=== PATIENT | female | born 1985 | race Two or more races ===

== ENCOUNTER 2017-04-08 19:58 | Emergency (ER) | payer MEDICAID ==
[~2017-04-08] VITALS: Ht 157.5 cm; Wt 72.6 kg
[2017-04-08 21:19] LABS: Urine Bilirubin Negative (Negative); Urine Blood Negative /uL (Negative); Urine Color Yellow (Yellow); Urine Glucose Normal (Normal); Urine Ketone Negative (Negative); Urine Mucus FEW (None Seen); Urine Nitrite Negative (Negative); Urine RBC <1 /hpf (0 - 4); Urine Squamous Epithelial Cell FEW /hpf (<5); Urine Urobilinogen Normal (Negative)
[2017-04-08 21:58] VITALS: BP 140/96
[2017-04-08] MEDS ORDERED: KETOROLAC TROMETH 60MG/2ML VIAL IM ONE (22:15)
== END 2017-04-08 22:28 | disposition home or self-care (01) ==
LOC: ER 19:58
DX: S33.5XXA Sprain of ligaments of lumbar spine, initial encounter (principal); Y32.XXXD Crashing of motor vehicle, undetermined intent, subsequent encounter
CPT/HCPCS: 81001; 81025; 96372; 99284; J1885

== ENCOUNTER 2017-05-26 01:56 | Emergency (ER) | payer MEDICAID ==
[~2017-05-26] VITALS: Ht 157.5 cm; Wt 74.8 kg
[2017-05-26 02:09] VITALS: BP 126/84
[2017-05-26 02:32] LABS: Basophils # (auto) 0.1 uL; Basophils % (auto) 0.5 % (0.0-2.0); Eosinophils # (auto) 0 uL; Hematocrit 40.8 % (36.0-46.0); Hemoglobin 14.2 g/dL (12.2-16.2); Lymphocytes # (auto) 1.1 uL; Lymphocytes % (auto) 6.5 % (10.0-50.0); Mean Corpuscular Hemoglobin 28.5 pg (28.0-32.0); Mean Corpuscular Hgb Conc. 34.8 g/dL (32.0-36.0); Monocytes # (auto) 0.5 uL; Neutrophils # (auto) 15.4 uL; Platelet Count (auto) 350 10^3/uL (140-450); Red Blood Cells 4.98 10^6/uL (4.0-5.20); White Blood Cell 17.2 10^3/uL (4.4-10.8)
[2017-05-26 02:50] LABS: Albumin 4.3 g/dL (3.4-5.0); BUN/Creatinine Ratio 14.3; Calcium 9.8 mg/dL (8.5-10.1)
[2017-05-26 02:52] LABS: Bilirubin, Total 1.2 mg/dL (0.2-1.0); Total Protein 8.4 g/dL (6.4-8.2)
== END 2017-05-26 02:54 | disposition left against medical advice (07) ==
LOC: ER 01:58
DX: R10.9 Unspecified abdominal pain (principal); Z53.21 Procedure and treatment not carried out due to patient leaving prior to being seen by health care provider
CPT/HCPCS: 36415; 74176; 80053; 82150; 83690; 84702; 85025